=== PATIENT | male | born 1980 | race Caucasian/White ===

== ENCOUNTER 2022-01-23 13:44 | Emergency (ER) | payer SELFPAY ==
[2022-01-23] MEDS ORDERED: HYDROCODONE/APAP 10/325 TAB ONE (14:37)
[2022-01-23] MEDS ORDERED: KETOROLAC 30 MG/ML INJ ONE (14:37)
[2022-01-23] MEDS ORDERED: DIAZEPAM 5 MG TABLET ONE (14:38)
--- NOTE | 2022-01-23 15:13 | RAD REPORT ---
EXAM DESCRIPTION: RAD - Lumbar Spine 3 Views - 01/23/2022 2:54 pm CLINICAL HISTORY: Back pain FINDINGS: The alignment of the lumbar spine is satisfactory. No fracture or dislocation is seen. Minimal spondylosis involves the lumbar spine
--- NOTE | 2022-01-23 16:18 | EDPHYS ---
Physician Documentation [facility] Name: Howie Pham Age: 41 yrs Sex: Male : 1980 Arrival Date: 01/23/2022 Time: 13:46 Bed 12 Private MD: ED Physician Elia Ambrose HPI: 01/23 14:16 This 41 yrs old Male presents to ER via Wheelchair with complaints of Back Pain. jmm 14:16 The patient presents with pain that is acute. Onset: The symptoms/episode jmm began/occurred acutely, today. The pain does not radiate. Associated signs and symptoms: Pertinent negatives: hematuria, incontinence, nausea, vomiting. This is a 41 year old male with no chronic medical conditions that presents to the ED with complaints of lower back pain after bending over and feeling a pop. Pain is mainly in the left lower back. . Historical: - Allergies: 13:53 No Known Allergies; ab2 - PMHx: 13:53 None; ab2 - PSHx: 13:53 None; ab2 - Immunization history:: Adult Immunizations up to date. - Social history:: Smoking status: Patient reports the use of cigarette tobacco products, smokes one-half pack cigarettes per day. ROS: 14:16 Constitutional: Negative for fever, chills, and weight loss, Cardiovascular: Negative jmm for chest pain, palpitations, and edema, Respiratory: Negative for shortness of breath, cough, wheezing, and pleuritic chest pain. 14:16 Back: Positive for pain with movement. 14:16 All other systems are negative. Exam: 14:16 Constitutional: This is a well developed, well nourished patient who is awake, alert, jmm and in no acute distress. Head/Face: atraumatic. Eyes: EOMI, no conjunctival erythema appreciated ENT: Moist Mucus Membranes Neck: Trachea midline, Supple Chest/axilla: Normal chest wall appearance and motion. Cardiovascular: Regular rate and rhythm. No edema appreciated Respiratory: Normal respirations, no respiratory distress appreciated Abdomen/GI: Non distended, soft 14:16 Skin: General appearance color normal MS/ Extremity: Moves all extremities, no obvious deformities appreciated, no edema noted to the lower extremities Neuro: Awake and alert Psych: Behavior is normal, Mood is normal, Patient is cooperative and pleasant 14:16 Back: pain, that is moderate, of the lumbar area and left low back. Vital Signs: 13:50 BP 130 / 88; Pulse 100; Resp 17; Temp 98.6; Pulse Ox 100% on R/A; Weight 81.65 kg; ab2 Height 5 ft. 6 in. (167.64 cm); Pain 9/10; 13:50 Body Mass Index 29.05 (81.65 kg, 167.64 cm) ab2 MDM: 14:16 Patient medically screened. [facility] 16:14 Data reviewed: vital signs, nurses notes. Counseling: I had a detailed discussion with katey the patient and/or guardian regarding: the historical points, exam findings, and any diagnostic results supporting the discharge/admit diagnosis, radiology results, the need for outpatient follow up, to return to the emergency department if symptoms worsen or persist or if there are any questions or concerns that arise at home. ED course: Patient is alert and non toxic in appearance in the ED. I do not suspect cord compression or cauda equina. Patient given return precautions. patient understood and agrees with the plan of care. . 01/23 14:20 Order name: Lumbar Spine (3 Views) XRAY; Complete Time: 15:26 [facility] Administered Medications: 14:40 Drug: Ketorolac 30 mg Route: IM; Site: right deltoid; iw 15:10 Follow up: Response: No adverse reaction iw 14:40 Drug: [place] (HYDROcodone-acetaminophen) 10 mg-325 mg 1 tabs Route: PO; iw 15:10 Follow up: Response: No adverse reaction iw 14:40 Drug: Valium (diazepam) 5 mg Route: PO; iw 15:20 Follow up: Response: No adverse reaction iw Disposition: 01/24 15:40 Co-signature as Attending Physician, Elia Ambrose MD I agree with the assessment and kdr plan of care. Disposition Summary: 01/23/22 16:17 Discharge Ordered Location: Home [facility] Condition: Stable [facility] Diagnosis - Strain of muscle, fascia and tendon of lower back [facility] Followup: jmm - With: Private Physician - When: 2 - 3 days - Reason: Recheck today's complaints, Continuance of care, Re-evaluation by your physician Discharge Instructions: - Discharge Summary Sheet [facility] - Low Back Sprain or Strain Rehab-SportsMed [facility] Forms: - Medication Reconciliation Form jmm - Thank You Letter jmm - Antibiotic Education jmm - Prescription Opioid Use jmm - Work release form eb Prescriptions: - Zanaflex 4 mg Oral Tablet - take 1 tablet by ORAL route every 8 hours As needed; 20 tablet; Refills: 0, [facility] Product Selection Permitted - Diclofenac Sodium 75 mg Oral Tablet Sustained Release - take 1 tablet by ORAL route 2 times per day; 30 tablet; Refills: 0, Product [facility] Selection Permitted Signatures: Dispatcher [employer] Elia Reese MD MD kdr Mickail, Joel, PA PA jmm Williams, Irene, DEB RN Sidney Russell
--- NOTE | 2022-01-23 16:18 | ER ---
Nurse's Notes [facility] Name: Howie Pham Age: 41 yrs Sex: Male : 1980 Arrival Date: 01/23/2022 Time: 13:46 Bed 12 Private MD: Diagnosis: Strain of muscle, fascia and tendon of lower back Presentation: 01/23 13:50 Chief complaint: Patient states: "I was at work and was bent down picking something up ab2 and I felt something slip and pop, then I fell to the ground, I needed help getting back up because of how bad it hurt." Pt c/o low back pain. Coronavirus screen: Vaccine status: Patient reports being unvaccinated. Client denies travel out of the [place] in the last 14 days. At this time, the client does not indicate any symptoms associated with coronavirus-19. Ebola Screen: Patient negative for fever greater than or equal to 101.5 degrees Fahrenheit, and additional compatible Ebola Virus Disease symptoms Patient denies exposure to infectious person. Patient denies travel to an Ebola-affected area in the 21 days before illness onset. No symptoms or risks identified at this time. Initial Sepsis Screen: Does the patient meet any 2 criteria? No. Patient's initial sepsis screen is negative. Does the patient have a suspected source of infection? No. Patient's initial sepsis screen is negative. Risk Assessment: Do you want to hurt yourself or someone else? Patient reports no desire to harm self or others. Onset of symptoms is unknown. 13:50 Method Of Arrival: Wheelchair ab2 13:50 Acuity: JEAN MARIE 4 ab2 Triage Assessment: 13:53 General: Appears in no apparent distress. uncomfortable, Behavior is calm, cooperative, ab2 appropriate for age. Pain: Complains of pain in low back area. Neuro: Level of Consciousness is awake, alert, obeys commands, Oriented to person, place, time, situation, Appropriate for age Painting Technician are equal bilaterally Moves all extremities. Gait is steady, Speech is normal, Facial symmetry appears normal. Cardiovascular: No deficits noted. Denies chest pain, shortness of breath, Patient's skin is warm and dry. Respiratory: Airway is patent Respiratory effort is even, unlabored, Respiratory pattern is regular, symmetrical. Musculoskeletal: Range of motion: intact in all extremities, Reports pain in low back area. Historical: - Allergies: 13:53 No Known Allergies; ab2 - PMHx: 13:53 None; ab2 - PSHx: 13:53 None; ab2 - Immunization history:: Adult Immunizations up to date. - Social history:: Smoking status: Patient reports the use of cigarette tobacco products, smokes one-half pack cigarettes per day. Vital Signs: 13:50 BP 130 / 88; Pulse 100; Resp 17; Temp 98.6; Pulse Ox 100% on R/A; Weight 81.65 kg; ab2 Height 5 ft. 6 in. (167.64 cm); Pain 9/10; 13:50 Body Mass Index 29.05 (81.65 kg, 167.64 cm) ab2 ED Course: 13:46 Patient arrived in ED. am2 13:52 Triage completed. ab2 13:54 Arm band placed on right wrist. ab2 14:01 Sanford Schwartz PA is PHCP. [facility] 14:01 Elia Ambrose MD is Attending Physician. [facility] 14:38 Ngozi Shabazz, RN is Primary Nurse. iw 14:55 Lumbar Spine (3 Views) XRAY In Process Unspecified. EDMS Administered Medications: 14:40 Drug: Ketorolac 30 mg Route: IM; Site: right deltoid; iw 15:10 Follow up: Response: No adverse reaction iw 14:40 Drug: [place] (HYDROcodone-acetaminophen) 10 mg-325 mg 1 tabs Route: PO; iw 15:10 Follow up: Response: No adverse reaction iw 14:40 Drug: Valium (diazepam) 5 mg Route: PO; iw 15:20 Follow up: Response: No adverse reaction iw Outcome: 16:17 Discharge ordered by . katey 16:49 Patient left the ED. iw Signatures: Dispatcher [employer] EDMS Sanford Schwartz PA PA jmm Williams, Irene, DEB RN iw Jennifer Ham am2 Sidney Hardy ab2
== END 2022-01-23 16:49 | disposition home or self-care (01) ==
LOC: ER 13:44
DX: S39.012A Strain of muscle, fascia and tendon of lower back, initial encounter (principal); F17.210 Nicotine dependence, cigarettes, uncomplicated
CPT/HCPCS: 72100; 96372; 99283